=== PATIENT | female | born 1960 | race Caucasian/White ===

== ENCOUNTER → 2017-10-10 15:05 | Outpatient (CLI) | payer BC, SELFPAY ==
--- NOTE | 2017-10-10 15:08 | RAD_ITS ---
STUDY: X-RAY - UNILATERAL RIBS ( RIGHT ) REASON FOR EXAM: Female, 57 years old. Right posterior and lateral rib pain. TECHNIQUE: 3 view(s) of the ribs. COMPARISON: None. FINDINGS: Normal visualized ribs without a demonstrated fracture. The visualized lung is clear and expanded. RAD/Ribs Bilat 3V No CXR IMPRESSION: Normal x-ray examination of the ribs. Electronically Signed: Dimas Bueno MD at 15:37 EDT Tel [phone], Service support ,
== END ==
PROVIDERS: Family Provider Student in an Organized Health Care Education/Training Program; PCP Student in an Organized Health Care Education/Training Program; Visit Provider Physician Assistant Medical
DX: S20.219A Contusion of unspecified front wall of thorax, initial encounter (principal)
CPT/HCPCS: 71110

== ENCOUNTER 2017-12-24 15:30 | Emergency (ER) | payer BC, SELFPAY ==
[2017-12-24 15:31] VITALS: BP 147/93; PULSE 93; RESP 16; TEMP 37.3; O2SAT 97; BMI 23.3
--- NOTE | 2017-12-24 15:44 | ED.VISSUMM ---
- ER Visit Summary Date of Service: 12/24/17 Chief Complaint: Left ankle injury History of Present Illness: The patient is a 57 F presenting with left ankle injury. She was outside looking for her cat. She twisted her left ankle and fell to the ground. She had no other injuries. She did not hit her head or lose consciousness. She was able to ambulate after the fall. Complains of persistent pain in left ankle. Denies other complaints. Physical Examination: Vitals are stable. Patient is afebrile. Alert no acute distress. HEENT exam is unremarkable. Lungs are clear and equal bilaterally. Heart is regular rate and rhythm. Extremities left lateral ankle tenderness and swelling. No proximal fibula tenderness. No 5th metatarsal tenderness. No achilles tendon tenderness Skin is warm and dry. No focal neurologic deficit. Remainder of exam is unremarkable. Emergency Department Course and Treatment: Left ankle x-ray shows acute nondisplaced lateral malleolar fracture. She is advised to ice and elevate. She is given a boot orthosis and crutches. She is advised nonweightbearing. Advised to follow-up with orthopedics. Advised return ED if worsening complaints. She is given a prescription for [place]. Disposition: Discharged home Impression: Left lateral malleolar fracture This note was generated with happn dictation software. It may contain incorrect words, spelling, and punctuation that were not noted in review of the chart prior to signing ED Disposition - Plan for ED Patient: Chief Complaint: Lower Extremity Injury Instructions: ED Fx Ankle Lateral Malleolus Prescriptions: Hydrocodone Bitart/Apap 5-325 [[place] 5MG-325MG] 1 tablet PO Q6H PRN PRN 3 Days #10 tablet PRN Reason: Pain Referrals: Luis Barrientos DO [Primary Care Provider] - Tai Snow MD [STAFF PHYSICIAN] -
--- NOTE | 2017-12-24 15:47 | ED.DCSUM_ITS ---
- ER Visit Summary Date of Service: 12/24/17 Chief Complaint: Left ankle injury History of Present Illness: The patient is a 57 F presenting with left ankle injury. She was outside looking for her cat. She twisted her left ankle and fell to the ground. She had no other injuries. She did not hit her head or lose consciousness. She was able to ambulate after the fall. Complains of persistent pain in left ankle. Denies other complaints. Physical Examination: Vitals are stable. Patient is afebrile. Alert no acute distress. HEENT exam is unremarkable. Lungs are clear and equal bilaterally. Heart is regular rate and rhythm. Extremities left lateral ankle tenderness and swelling. No proximal fibula tenderness. No 5th metatarsal tenderness. No achilles tendon tenderness Skin is warm and dry. No focal neurologic deficit. Remainder of exam is unremarkable. Emergency Department Course and Treatment: Left ankle x-ray shows acute nondisplaced lateral malleolar fracture. She is advised to ice and elevate. She is given a boot orthosis and crutches. She is advised nonweightbearing. Advised to follow-up with orthopedics. Advised return ED if worsening complaints. She is given a prescription for [place]. Disposition: Discharged home Impression: Left lateral malleolar fracture This note was generated with [employer] dictation software. It may contain incorrect words, spelling, and punctuation that were not noted in review of the chart prior to signing ED Disposition - Plan for ED Patient: Chief Complaint: Lower Extremity Injury Instructions: ED Fx Ankle Lateral Malleolus Prescriptions: Hydrocodone Bitart/Apap 5-325 [[place] 5MG-325MG] 1 tablet PO Q6H PRN PRN 3 Days # 10 tablet PRN Reason: Pain Referrals: Luis Barrientos DO [Primary Care Provider] - Tai Snow MD [STAFF PHYSICIAN] -
--- NOTE | 2017-12-24 15:56 | RAD_ITS ---
STUDY: X-RAY - LEFT ANKLE REASON FOR EXAM: Female, 57 years old. Rolled ankle. Lateral malleolar pain. TECHNIQUE: 4 view(s) of the ankle. COMPARISON: None. FINDINGS: There is an acute, nondisplaced, transverse fracture of the lateral malleolus at the level of the talar dome. There is no angulation. No additional fracture is demonstrated. Ankle joint effusion is seen. There is marked lateral soft tissue swelling. RAD/Ankle min 3 Views IMPRESSION: Acute nondisplaced lateral malleolar fracture. Electronically Signed: Meryl Espinal MD at 16:40 EDT Tel , Service support ,
--- NOTE | 2017-12-24 16:45 | ED.DEP ---
ED Disposition - Plan for ED Patient: Chief Complaint: Lower Extremity Injury Instructions: ED Fx Ankle Lateral Malleolus Prescriptions: Hydrocodone Bitart/Apap 5-325 [[place] 5MG-325MG] 1 tablet PO Q6H PRN PRN 3 Days #10 tablet PRN Reason: Pain Referrals: Luis Barrientos DO [Primary Care Provider] - Tai Snow MD [STAFF PHYSICIAN] -
--- NOTE | 2017-12-24 16:46 | DCINST.ED_ITS ---
ED Disposition - Plan for ED Patient: Chief Complaint: Lower Extremity Injury Instructions: ED Fx Ankle Lateral Malleolus Prescriptions: Hydrocodone Bitart/Apap 5-325 [[place] 5MG-325MG] 1 tablet PO Q6H PRN PRN 3 Days # 10 tablet PRN Reason: Pain Referrals: Lusi Barrientos DO [Primary Care Provider] - Tai Snow MD [STAFF PHYSICIAN] -
[2017-12-24] MEDS: HYDROcodone Bitartrate/Apap 5/325 Tablet PO (16:58)
[2017-12-24 17:16] VITALS: PULSE 88; RESP 16; O2SAT 100
== END 2017-12-24 17:16 | disposition home or self-care (01) ==
LOC: ED 16:20
PROVIDERS: Emergency Provider Emergency Medicine; Family Provider Student in an Organized Health Care Education/Training Program; PCP Student in an Organized Health Care Education/Training Program
DX: S82.65XA Nondisplaced fracture of lateral malleolus of left fibula, initial encounter for closed fracture (principal); X50.1XXA Overexertion from prolonged static or awkward postures, initial encounter; Y93.89 Activity, other specified; Y92.9 Unspecified place or not applicable; Y99.8 Other external cause status
CPT/HCPCS: 73610; 99284

== ENCOUNTER 2020-10-23 17:51 | Outpatient (RCR) | payer OTHER, SELFPAY ==
[2018-12-15 16:11] VITALS: BMI 23.3
--- NOTE | 2020-10-23 19:04 | HP.PTEVAL ---
Patient's Visit Information MICHAEL HURTADO is a 60 year old F referred to Physical Therapy by Dr. Alexi Ingram DO with a diagnosis of R shoulder pain. Date of Evaluation: 10/23/20 Physical Therapist: Lyle Loera, PT, ATC - Visit Plan Frequency: 1-2x /Week Duration: 4-6 Weeks Plan: Assess benefit of C Tx next visit. Postural edu, scap stab ex's, DTR, UBE, and HEP - Subjective Pt reports she has had R shoulder pain for the last 5-6 months. Pt reports the pain is located in the upper trap region and extends to the shoulder. Pt reports her pain had an insidious onset in nature, and she is not sure what the triggering factor is. Pt reports turning her head to the R increases her pain. 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 Pt reports she is R hand dominant. Pt reports no UE tingling or numbness at this time. Pt reports occasional sleep difficulty secondary to pain. Pt reports she has never experienced this pain in the past. Pt reports massage helps a little . Pt reports she is still able to lift all the heavy stuff she could in the past as the pain doesnt limit her. 4/10 pain at rest, 8/10 pain at worst - Pain R shoulder Pain Intensity (Out of 10): 4 Pain Intensity Range: 8 - Objective Neuro: B UE and LE sensation is WNL to light touch. B bicepital reflex= 2/3. Palpation: Pt is tender along the medial border of R scapula. No deformity present at this time. ROM: carvical spine flex and R rotation increase. All other motions are WNL. MMT: B UE's are grossly 5/5 throughout. Repeated movements: RPIS 10x3 NE, RRIS 10x3 NE. Special tests: pos apley compression test - Goals Goal 1:: Decrease R interscapular pain x 50% to aid with sleep Goal Time Frame: 4-6 Weeks Goal 2:: Increase c/s ROM to WNL in all planes to aid with IADL's Goal Time Frame: 4-6 Weeks Goal 3:: I with HEP Goal Time Frame: 4-6 Weeks - Rehabilitation Potential Physical Therapy Diagnosis: Pt has R scapular pain and difficulty with sleep secondary to degenerative changes in C/S Rehabilitation Potential: Good - Anticipated Interventions Patient/Client Instruction: Educate patient on: Condition, Plan of Care For the Purpose of:: To improve self management Therapeutic Exercise to Include: Strength training, Body mechanics, Postural training, Flexibilty training, Scapular Strength/Stabilization For the Purpose of:: To decrease pain, To increase ROM Manual Therapy Techniques to Include: Soft tissue mobilization For the Purpose of:: To decrease pain Intermittent cervical traction: Yes For the Purpose of:: To decrease pain, To increase ROM Thank you for the opportunity to evaluate your patient. For Medicare and Medicare HMO plans, please review the plan of care and approve it. It will need to be FAXED BACK to us at [phone] for Medicare purposes. For Medicare only, by signing this I certify the plan of care. Please let me know if there are questions or concerns regarding this plan of care. Physician Signature: Date:
--- NOTE | 2021-02-13 12:42 | HP.PT.NRP ---
MICHAEL HURTADO was seen in my office for initial evaluation on 10/23/20. The following Plan of Care was established for this patient: Initial Frequency: 1-2x /Week Initial Duration: 4-6 Weeks Patient/Client Instruction: Educate patient on: Condition, Plan of Care For the Purpose of:: To improve self management Therapeutic Exercise to Include: Strength training, Body mechanics, Postural training, Flexibilty training, Scapular Strength/Stabilization For the Purpose of:: To decrease pain, To increase ROM Manual Therapy Techniques to Include: Soft tissue mobilization For the Purpose of:: To decrease pain Intermittent cervical traction: Yes For the Purpose of:: To decrease pain, To increase ROM This patient was last seen in our office . Pertinent comments regarding their Physical therapy will appear below: Pt was evaluated for neck pain on the date of 10/23/20. Pt has not returned through todays date and is discontinued at this time. At this point I will be discontinuing this patient from physical therapy. I would be happy to see this patient again in the future if found appropriate by the physician. Thank you! Lyle Loera, PT, ATC Balance/Gait/Functional tests - Balance/Special Test Scores Quick DASH Score: [phone]
== END 2020-10-23 19:00 | disposition home or self-care (01) ==
LOC: PT 17:51
PROVIDERS: PCP Student in an Organized Health Care Education/Training Program; Referring Provider Orthopaedic Surgery; Visit Provider Orthopaedic Surgery
DX: M25.511 Pain in right shoulder (principal)
CPT/HCPCS: 97012; 97161

== ENCOUNTER → 2020-12-03 15:15 | Outpatient (CLI) | payer OTHER, SELFPAY ==
--- NOTE | 2020-12-03 15:22 | EKG12_ITS ---
Test Reason : PRE-OP Blood Pressure : / mmHG Vent. Rate : 060 BPM Atrial Rate : 060 BPM P-R Int : 138 ms QRS Dur : 090 ms QT Int : 436 ms P-R-T Axes : 049 056 014 degrees QTc Int : 436 ms Normal sinus rhythm Normal ECG No previous ECGs available Confirmed by ROCCO GOMEZ, JENNIFER ([id number]), film editor JENNYFER BROWN ([id number]) on 12/04/2020 8:53:49 AM Referred By: MARK Confirmed By:JENNIFER VALIENTE MD
== END ==
PROVIDERS: PCP Student in an Organized Health Care Education/Training Program; Visit Provider Orthopaedic Surgery
DX: S83.271A Complex tear of lateral meniscus, current injury, right knee, initial encounter (principal); M17.11 Unilateral primary osteoarthritis, right knee
CPT/HCPCS: 93005

== ENCOUNTER 2024-02-22 06:13 | Emergency (ER) | payer OTHER, SELFPAY ==
[2024-02-22 06:14] VITALS: BP 174/91; PULSE 56; RESP 17; TEMP 36.7; O2SAT 100; BMI 24.3
[2024-02-22 06:16] VITALS: BP 174/91; PULSE 52; RESP 17; TEMP 36.7; O2SAT 99
--- NOTE | 2024-02-22 06:27 | CT_ITS ---
INDICATION: trauma to right upper quadrant and lower R-ribs EXAMINATION: CT Abdomen And Pelvis W/ Contrast Injection TECHNIQUE: Helically acquired images were obtained of the abdomen and pelvis with sagittal and coronal reconstructed images. Individualized dose optimization techniques were used for this CT. IV contrast dosage and agent: 100 mL of Isovue-370. Oral contrast: None. COMPARISON: None. FINDINGS: VESSELS: No abdominal aortic aneurysm or dissection. LIVER: No evidence of a mass. No intrahepatic or extrahepatic biliary duct dilation. GALLBLADDER: No calcified stones. No evidence of cholecystitis. PANCREAS: No focal solid or cystic mass. No evidence of pancreatitis. SPLEEN: Normal. ADRENAL GLANDS: Normal. KIDNEYS AND URETERS: No urinary tract stone. No hydronephrosis or hydroureter. No significant asymmetric perinephric stranding. URINARY BLADDER: Circumferential thickening of the urinary bladder wall. BOWEL: No evidence of diverticulosis or diverticulitis. Appendix not identified. No evidence of bowel obstruction. REPRODUCTIVE ORGANS: No evidence of a pelvic mass. PERITONEUM: No intraabdominal free fluid or free air. LYMPH NODES: No pathologically enlarged mesenteric or retroperitoneal lymph nodes. ABDOMINAL WALL: No abdominal or pelvic wall hernia. BONES: No acute abnormality. LOWER CHEST: Visualized lung bases are unremarkable. CT/Abdomen/Pelvis W IV Cont ONLY IMPRESSION: 1. No evidence of acute traumatic injury of the abdomen or pelvis. 2. No fracture of the visualized right lower ribs. 3. Thickening of the urinary bladder wall which may due to underdistention or may represent cystitis or chronic outlet obstruction. Electronically Signed: Jaison Velazquez DO at 7:35 EST ,
--- NOTE | 2024-02-22 06:31 | EDS_ITS ---
HPI HPI - GI History of Present Illness Chief Complaint: Abd Pain Informant: patient Abdominal Pain/Flank Pain Onset: Days Context: Sudden Onset Timing: Continuous Quality: Aching Location: RUQ and - (Right lower rib cage anteriorly and right upper quadrant.) Maximum Severity: Moderate Worsened by: Movement Relieved by: Remaining Still Nausea/Vomiting/Emesis GI Symptom: Negative for Nausea or Vomiting Diarrhea/Melena/Hematochezia GI Symptom: Negative for Diarrhea, Melena or Hematochezia Narrative Narrative: 63-year-old female no sniffing past medical history. Prior appendectomy. Tripped and fell on steps carrying things last . She hit her right lower rib cage and right upper quadrant at that time. Developed pain the following day on Tuesday. She has now had pain in that area for approximately 5 to 6 days. Denies any nausea, vomiting or diarrhea. No dysuria. Was symptom- free before she fell. Prior similar symptoms: No Recent Illness/Hospitalization: No PFSH PFSH Medical History Limb weakness neck/back pain Hemorrhoids Home Medications ?Medication ?Instructions ?Recorded ?Last Taken ?Type calcium 600 mg (as 1 cap PO DAILY 12/15/18 Unknown History carbonate)-vitamin D3 12.5 mcg (500 unit) capsule (Calcium with Vit D3) levothyroxine 75 mcg tablet 75 mcg PO DAILY disorder of 02/22/24 Unknown History thyroid gland Allergy/AdvReac Type Severity Reaction Status Date / Time No Known Allergies Allergy Verified 02/22/24 06:16 Family History Mother Diabetes Social History Smoking Status: Current some day smoker tobacco type: cigarettes alcohol intake: current alcohol intake frequency: holidays/special occasions only ROS ROS ED ROS Narrative Right upper quadrant abdominal pain and right lower rib cage pain post fall. Constitutional Constitutional ED: Denies chills or fever(s) ENT ENT ED: Denies ear pain Cardiovascular Cardiovascular: Denies chest pain Respiratory/Chest Respiratory/Chest: Denies cough or dyspnea Gastrointestinal Gastrointestinal: Reports abdominal pain; Denies constipation, diarrhea, melena, nausea or vomiting Genitourinary Genitourinary ED: Denies dysuria or hematuria Musculoskeletal Musculoskeletal: Denies arthralgias Integumentary Denies abscess Neurologic Neurologic: Denies headache(s) Psychiatric Psychiatric: Denies anxiety Endocrine Endocrinology: Denies polydipsia Hematologic/Lymphatic Hematologic/Lymphatic: Denies easy bleeding Allergic/Immunologic Allergic/Immunologic ED: Denies mouth swelling EXAM Physical Exam Narrative Exam Narrative: 63-year-old female no acute distress vital signs are stable afebrile. Pulse ox 100% on room air no signs hypoxia. Accompanied by her . H EENT exam pupils round reactive light atraumatic. Nontender. Neck nontender. Lungs clear to auscultation bilaterally. Heart regular rhythm no murmur. Rate about 60. Chest wall there is no bruising or ecchymosis. No crepitance. She does have tenderness along her right lower anterior and lateral rib cage on the last 1-2 ribs. Abdomen she also has right upper quadrant tenderness to deep palpation. No Vasquez sign. Left upper left lower right lower quadrant unremarkable. Again no bruising. No distention. No hernia or mass. Back is nontender. Pain is worse with movement. Moving all 4 extremities. Normal crop adjuster strength. Normal dorsi plantarflexion. No deformity. Neurologically patient is awake and alert no focal motor deficits. Const Vital Signs: 02/22/24 06:14 02/22/24 06:16 Temperature 98.1 F 98.1 F Temperature Source Oral Oral Pulse Rate 56 L 52 L Respiratory Rate 17 17 Blood Pressure 174/91 H 174/91 H Blood Pressure Mean 118 118 Pulse Ox 100 99 Oxygen Delivery Method Room Air Room Air Positive well nourished and well developed; Negative for obese, cachectic, contractures or unkempt General Appearance ED: well developed and NAD; Negative for unkempt, cachectic, contractures or pallor Nutritional Appearance: Negative for cachectic or obese HEENT Reports moist mucous membranes normocephalic and atraumatic; Negative for trauma or tenderness Eyes PERRL and EOMs intact bilaterally General Eye ED: Negative for pale conjunctiva Neck no lymphadenopathy, supple and no JVD General: Negative for tenderness Carotids: Negative for other Resp normal respiratory effort and clear to auscultation bilaterally Effort and Inspection: Negative for respiratory distress Auscultation: Negative for rales, rhonchi, wheezes or diminished lung sounds Cardio regular rate, regular rhythm, S1 normal heart sound, S2 normal heart sound and no murmurs Rate: Negative for bradycardia or tachycardic Rhythm: Negative for abnormal rhythm GI non-distended and no masses; Negative for non-tender Inspection: Negative for abdominal distention Auscultation: normoactive bowel sounds Palpation: soft and tender; Negative for rigid, mass or rebound tenderness present Back/Spine no CVA tenderness Back/Spine Narrative: Back nontender. No bruising. General Back: Negative for CVA tenderness Cervical Spine: Negative for cervical spine tenderness Thoracic Spine / Upper Back: Negative for thoracic spinal tenderness Lumbar Spine / Lower Back: Negative for lumbar spinal tenderness Extremity full ROM General Extremety ED: Negative for edema or tenderness General Extremity: Negative for edema Neuro CN's II-XII intact bilaterally and moves all extremities Sensorium / Orientation: alert, oriented to person, oriented to place and oriented to time; Negative for orientation impaired, confused or lethargic Motor Exam: strength 5/5 throughout Psych mental status grossly normal and thought process normal Appearance: Negative for unkempt Attitude: No agitated Mood & Affect: Negative for depressed, anxious or tearful Skin no wounds General Skin Exam: Negative for jaundice or pallor Lesions: no lesions Rashes: no rashes Trauma: Negative for abrasion Image ED - Body Diagram Man: 2 1. Right lower rib cage and right upper quadrant soft tissue tenderness. No bruising. No crepitance. MDM MDM MDM Narrative Medical decision making narrative: 63-year-old female fell last and Tuesday started having right lower rib cage and right upper quadrant abdominal pain. Suspect rib fracture. Due to the fall and trauma steps I am obtaining a CAT scan to evaluate for possible injury also to solid organs or soft tissue. Chest x-ray will also be obtained. She was offered pain medication but does not want a thing at this time. Screening labs are being obtained. Repeat exam at 7:24 AM patient doing well. I went over her blood work with her and her chest x-ray results. We are awaiting the formal read on the CAT scan. I did review it myself. History & Record Review Discussion w/independent historian: Patient and Family Additional record(s) reviewed:: Prior inpatient record, Prior outpatient record, Prior ED visit and Prior labs Lab Data Attestation: I reviewed the patient's lab results. Lab results narrative: CBC normal. White count of 7. H&H 13.5 and 41. Platelets 226. Electrolytes show gap 6. Normal BUN of 14 and creatinine 0.58. Glucose 114. Liver enzymes normal. Lipase normal at 30. CT of the abdomen pelvis is unremarkable. As was the chest x-ray. Labs: Laboratory Results - last 24 hr 02/22/24 06:28 WBC 7.0 RBC 4.26 Hgb 13.5 Hct 41.0 MCV 96.2 MCH 31.7 MCHC 32.9 RDW Std Deviation 43.9 RDW Coeff of [place] 12.5 Plt Count 226 MPV 10.1 Immature Gran % (Auto) 0.300 Neut % (Auto) 48.1 Lymph % (Auto) 42.1 H [place] % (Auto) 7.4 Eos % (Auto) 1.4 Baso % (Auto) 0.7 Absolute Neuts (auto) 3.4 Absolute Lymphs (auto) 2.96 Nucleated RBC % 0 Sodium 137 Potassium 3.8 Chloride 104 Carbon Dioxide 27.0 Anion Gap 6 BUN 14 Creatinine 0.58 Estim Creat Clear Calc 91.66 Est GFR (MDRD) Af Amer 136 Est GFR (MDRD) Non-Af 112 BUN/Creatinine Ratio 24.1 H Glucose 114 H Calcium 9.3 Total Bilirubin 0.60 AST 24 ALT 33 Alkaline Phosphatase 76 Total Protein 7.5 Albumin 4.1 Globulin 3.4 Albumin/Globulin Ratio 1.2 Lipase 30 Radiography Diagnostic Testing: Clinical Impression(s) from Imaging Studies Abdomen/Pelvis CT 02/22/24 06:27 IMPRESSION: 1. No evidence of acute traumatic injury of the abdomen or pelvis. 2. No fracture of the visualized right lower ribs. 3. Thickening of the urinary bladder wall which may due to underdistention or may represent cystitis or chronic outlet obstruction. Electronically Signed: Jaison Velazquez DO at 7:35 EST , Chest X-Ray 02/22/24 07:10 IMPRESSION: No acute abnormality. If there is a clinical concern for a rib fracture, recommend a dedicated rib series. Electronically Signed: Jaison Velazquez DO at 7:23 EST , Discharge Plan Triage Chief Complaint: Abd Pain ED Provider: Bull Lockwood Dx/Rx/DC Orders Clinical Impression: Fall, Abdominal wall contusion, Contusion of rib Instructions: ED Soft Tissue Contusion, ED Bruise, Rib Prescriptions: No Action calcium carbonate-vitamin D3 [Calcium 600 with Vitamin D3] 600 mg(1,500mg) - 500 unit capsule 1 cap PO DAILY levothyroxine 75 mcg tablet 75 mcg PO DAILY Primary Care Provider: Luis Barrientos Referrals: Luis Barrientos, [Primary Care Provider] - 1 Week if not improving Activity Restrictions/Additional Instructions: Ice to your right lower rib cage and right upper quadrant of your abdomen. This will decrease inflammation and pain. Motrin and Tylenol for pain. This should progressively start feeling better. But could be sore for another 1 to 2 weeks. Print Language: Bengali Disposition Disposition: Home, Self Care
[2024-02-22 06:35] LABS: Absolute Lymphocyte Count 2.96 X10^3/uL (0.83-4.51); Absolute Neutrophil Count 3.4 X10^3/uL (2.0-7.7); Basophil# 0.05 X10^3/uL; Basophil% 0.7 % (0-1); Eosinophils% 1.4 % (0-5); Hemoglobin 13.5 g/dL (12.0-15.0); Lymphocyte # 2.96 X10^3/ul (0.83-4.51); Lymphocyte % 42.1 % (19-41); Mean Corp Hgb Conc 32.9 g/dL (32-36); Mean Corpuscular Hgb 31.7 pg (27.0-32.0); Mean Corpuscular Volume 96.2 fL (81-99); Mean Platelet Vol. 10.1 fl (6.2-12.0); Monocyte# 0.52 X10^3/uL; Monocyte% 7.4 % (0-10); NRBC Flagged by Analyzer 0 % (0-5); Neutrophil # 3.38 X10^3/uL (2.7-7.7); Neutrophil % 48.1 % (47-70); Platelet Count 226 K/mm3 (150-450); RBC Distribution Width CV 12.5 % (11.6-14.6); RBC Distribution Width SD 43.9 fl (35.1-43.9); Red Blood Count 4.26 M/mm3 (4.2-5.4)
[2024-02-22 06:55] LABS: ALB/GLOB Ratio 1.2 RATIO (0.9-2.4); AST(SGOT) 24 U/L (15-37); Alanine Aminotransfer ALT/SGPT 33 U/L (13-56); Albumin, Serum 4.1 g/dL (3.2-5.0); Alkaline Phosphatase 76 U/L (45-117); Anion Gap 6 (5-15); BUN 14 mg/dL (7-18); BUN/Creat Ratio 24.1 RATIO (10-20); Calcium,Total 9.3 mg/dL (8.5-10.1); Chloride 104 mmol/L (98-107); Creatinine, Serum 0.58 mg/dL (0.55-1.02); EST Glomerular Filtration Rate 112 mL/min (>60); Est Glom Filt Rate - Afr Amer 136 mL/min (>60); Estimated Creatinine Clearance 91.66 ml/min; Globulin 3.4 g/dL (2.2-4.2); Glucose 114 mg/dL (74-106); Lipase 30 U/L (13-75); Potassium 3.8 mmol/L (3.5-5.1); Protein, Total 7.5 g/dL (6.4-8.2); Sodium Level 137 mmol/L (136-145)
--- NOTE | 2024-02-22 07:10 | RAD_ITS ---
INDICATION: fell and hit right lower rib cage EXAMINATION/TECHNIQUE: X-RAY - XR Chest 2 Views COMPARISON: 10/10/2017. FINDINGS: LINES/DEVICES: None. LUNGS: No consolidation or evidence of an effusion. No evidence of edema or a pneumothorax. MEDIASTINUM AND CARDIOVASCULAR STRUCTURES: Cardiac silhouette is normal in size and contour. Mediastinum is unremarkable. BONES AND SOFT TISSUES: No acute abnormality. RAD/Chest PA and Lateral IMPRESSION: No acute abnormality. If there is a clinical concern for a rib fracture, recommend a dedicated rib series. Electronically Signed: Jaison Velazquez DO at 7:23 EST ,
[2024-02-22 07:57] VITALS: BP 134/76; PULSE 64; RESP 18; TEMP 36.6; O2SAT 99
== END 2024-02-22 08:00 | disposition home or self-care (01) ==
PROVIDERS: Emergency Provider Emergency Medicine; PCP Student in an Organized Health Care Education/Training Program; Visit Provider Emergency Medicine
DX: S30.1XXA Contusion of abdominal wall, initial encounter (principal); S20.219A Contusion of unspecified front wall of thorax, initial encounter; F17.210 Nicotine dependence, cigarettes, uncomplicated; Z79.899 Other long term (current) drug therapy; W19.XXXA Unspecified fall, initial encounter
CPT/HCPCS: 71046; 74177; 80053; 83690; 85025; 99283; Q9967; A4216